=== PATIENT | female | born 1990 | race Caucasian/White ===

== ENCOUNTER 2019-06-30 18:09 | Emergency (ER) | payer MEDICAID ==
[~2019-06-30] VITALS: Ht 175.3 cm; Wt 127.0 kg
[~2019-06-30 18:09] MED LIST: ATIVAN1 MG; CLOZARIL25 MG; DEPAKOTE 250MG250 M1; LITHATE5 MG
[2019-06-30 18:15] VITALS: BP 137/83
[2019-06-30] MEDS ORDERED: DEPAKOTE125 MG PO (18:26)
[2019-06-30] MEDS ORDERED: WELLBUTRIN XL300 MG PO (18:26)
[2019-06-30] MEDS ORDERED: LAMICTAL XR50 MG PO (18:27)
[2019-06-30] MEDS ORDERED: NYSTATIN 100,0015 G1 TOP (18:36)
[2019-06-30] MEDS ORDERED: IBUPROFEN 800800 M1 PO (18:37)
[2019-06-30] MEDS ORDERED: TYLENOL WITH CO1 TA1 PO (18:37)
== END 2019-06-30 18:43 | disposition home or self-care (01) ==
LOC: M.ERS 18:09
DX: M79.3 Panniculitis, unspecified (principal); B37.9 Candidiasis, unspecified; J45.909 Unspecified asthma, uncomplicated; M10.9 Gout, unspecified; Z88.6 Allergy status to analgesic agent; Z88.1 Allergy status to other antibiotic agents; Z88.8 Allergy status to other drugs, medicaments and biological substances; Z87.891 Personal history of nicotine dependence; Z91.011 Allergy to milk products; Z90.89 Acquired absence of other organs; Z98.890 Other specified postprocedural states

== ENCOUNTER 2019-08-09 21:02 | Emergency (ER) | payer MEDICAID ==
[~2019-08-09] VITALS: Ht 175.3 cm; Wt 126.5 kg
[~2019-08-09 21:02] MED LIST changes: +DEPAKOTE125 MG PO; +IBUPROFEN 800800 M1 PO; +LAMICTAL XR50 MG PO; +NYSTATIN 100,0015 G1 TOP; +TYLENOL WITH CO1 TA1 PO; +WELLBUTRIN XL300 MG PO
[2019-08-09] MEDS ORDERED: BENTYL 10 MG CA10 MG PO (21:11)
[2019-08-09] MEDS ORDERED: FLEXERIL PO (21:12)
[2019-08-09 21:25] LABS: URINE BILIRUBIN NEGATIVE (Negative); URINE BLOOD TRACE (Negative); URINE CLARITY CLEAR; URINE COLOR YELLOW; URINE GLUCOSE-RANDOM NEGATIVE (Negative); URINE KETONES NEGATIVE (Negative); URINE LEUKOCYTES-REFLEX NEGATIVE (Negative); URINE NITRITE-REFLEX NEGATIVE (Negative); URINE PROTEIN NEGATIVE (Negative); URINE SPECIFIC GRAVITY >= 1.030 (1.005-1.030); URINE UROBILINOGEN 0.2 E.U./dl (0.2-1.0)
[2019-08-09 21:32] LABS: ABSOLUTE BASOPHILS 0.1 thou/uL (0.0-0.2); ABSOLUTE EOSINOPHILS 0.1 thou/uL (0.0-0.7); ABSOLUTE LYMPHOCYTES 2.8 thou/uL (0.8-5.3); ABSOLUTE MONOCYTES 0.4 thou/uL (0.0-1.2); ABSOLUTE NEUTROPHILS 4.9 thou/uL (1.6-8.1); BASOPHILS 0.6 %; HEMATOCRIT 38.9 % (37.0-47.0); HEMOGLOBIN 13.4 gm/dL (12.0-15.0); LYMPHOCYTES 34.2 %; MCH 29.2 pg (26.0-34.0); MCHC 34.4 g/dL (28.0-37.0); MCV 84.9 fL (80.0-100.0); MONOCYTES 4.6 %; MPV 7.9 fl. (7.2-11.1); NUCLEATED RBCS 0 /100WBC; PLATELET COUNT* 316 thou/uL (150-400); POLYS 59.6 %; RBC 4.57 mil/uL (4.20-5.00); RDW-CV 14.1 % (10.5-14.5); WBC 8.3 thou/uL (4.0-11.0)
[2019-08-09 21:34] LABS: CALCIUM 8.9 mg/dL (8.5-10.1); CREATININE 0.8 mg/dL (0.6-1.3); POTASSIUM 3.5 mmol/L (3.5-5.1)
[2019-08-09 21:46] LABS: AMP/METHAMP Negative (Negative); BARBITURATES Negative (Negative); BENZODIAZEPINES Negative (Negative); COCAINE Negative (Negative); METHADONE Negative (Negative); OPIATES Negative (Negative); PCP Negative (Negative); THC Negative (Negative)
[2019-08-09 23:47] VITALS: BP 133/78
== END 2019-08-09 23:48 | disposition home or self-care (01) ==
LOC: M.ERS 21:02
PROVIDERS: Emergency Medicine
DX: N93.9 Abnormal uterine and vaginal bleeding, unspecified (principal); R10.2 Pelvic and perineal pain; M10.9 Gout, unspecified; J45.909 Unspecified asthma, uncomplicated; F17.210 Nicotine dependence, cigarettes, uncomplicated; Z88.6 Allergy status to analgesic agent; Z88.1 Allergy status to other antibiotic agents; Z88.8 Allergy status to other drugs, medicaments and biological substances; Z91.011 Allergy to milk products; Z90.89 Acquired absence of other organs; Z98.890 Other specified postprocedural states; Z79.899 Other long term (current) drug therapy